=== PATIENT | female | born 1995 | race Caucasian/White ===

== ENCOUNTER 2016-09-05 22:16 | Emergency (ER) | payer MEDICAID, OTHER ==
[~2016-09-05] VITALS: Ht 160 cm; Wt 63.0 kg
[2016-09-05 22:19] VITALS: Ht 160 cm; Wt 63.0 kg
[2016-09-05] MEDS ORDERED: BACTDS PO (22:44)
[2016-09-05 22:55] VITALS: BP 121/66
[2016-09-05] MEDS ORDERED: DIPHTH/TET/ACEL PERTUSS (ADULT) 0.5 ML VIAL IM* ONE (23:00)
--- NOTE | 2016-09-06 02:41 | ERA ---
ER Documentation Chief Complaint Date/Time DATE: 09/06/16 TIME: 02:38 Chief Complaint laceration right hand injured w/ a metal HPI Patient is 20-year-old female who presents complaining of a laceration on the right hand. Patient denies any neurological symptoms such as change in sensation or loss of movement. Patient states that her pain is about 5 out of 10. Patient refuses any pain medication. Patient cut her hand with a knife while cooking. ROS All systems reviewed and are negative except as per history of present illness. Medications Home Meds Active Scripts Sulfamethoxazole-Trimethoprim* (Bactrim* DS) 800-160 Mg Tab, 1 TAB PO BID for 5 Days, TAB Prov:ARELY MELENDEZ PA-C 09/05/16 Allergies Allergies: Coded Allergies: No Known Allergy (Unverified , 09/05/16) PMhx/Soc Medical and Surgical Hx: pt denies Medical Hx History of Surgery: Yes (SYMPATHOTOMY 2013) Anesthesia Reaction: No Hx Neurological Disorder: No Hx Respiratory Disorders: No Hx Cardiac Disorders: No Hx Psychiatric Problems: No Hx Miscellaneous Medical Probl: No Hx Alcohol Use: Yes Hx Substance Use: No Hx Tobacco Use: No Smoking Status: Never smoker Physical Exam Vitals Vital Signs Date Time Temp Pulse Resp B/P Pulse Ox O2 Delivery O2 Flow Rate FiO2 09/05/16 22:55 98.5 65 15 121/66 100 Room Air 09/05/16 22:19 98.6 72 20 113/58 100 Physical Exam Const: Well-appearing 20-year-old female presenting with her sister. Head: Atraumatic Eyes: Normal Conjunctiva ENT: Normal External Ears, Nose and Mouth. Neck: Full range of motion..~ No meningismus. Resp: Clear to auscultation bilaterally Cardio: Regular rate and rhythm, no murmurs Abd: Soft, non tender, non distended. Normal bowel sounds Skin: No petechiae or rashes Back: No midline or flank tenderness Ext: No cyanosis, or edema 1-2 cm laceration on the right thenar eminence. Patient is obtained pulses are 2+ and equal bilaterally patient is neurovascularly intact. Range of motion is full. Neur: Awake and alert Psych: Normal Mood and Affect Results 24 hrs Current Medications Medications (Trade) Dose Ordered Sig/Errol Route PRN Reason Start Time Stop Time Status Last Admin Dose Admin Diphtheria/ Tetanus/Acell Pertussis (Adacel) 0.5 ml ONCE ONCE IM* 09/05/16 23:00 09/05/16 23:01 DC 09/05/16 22:50 Procedures/MDM Patient is a 20-year-old female presents with a 2 cm shallow laceration on the left thenar eminence of the left hand. Patient is right-handed. Patient was given a Tdap and antibiotics and a bandage with discharge instructions for return precautions. Patient was neurovascularly intact bilaterally Departure Diagnosis: Primary Impression: Laceration Condition: Stable Patient Instructions: Laceration, Hand Additional Instructions: Return to emergency department if signs of infection develop. ARELY MELENDEZ PA-C Sep 06, 2016 02:41
== END 2016-09-05 22:55 | disposition home or self-care (01) ==
LOC: FTE 22:16
DX: S61.411A Laceration without foreign body of right hand, initial encounter (principal); W22.8XXA Striking against or struck by other objects, initial encounter; Y92.9 Unspecified place or not applicable; Z23 Encounter for immunization
CPT/HCPCS: 90471; 90715